=== PATIENT | male | born 1995 | race African-American/Black ===

== ENCOUNTER 2021-02-16 00:39 | Emergency (ER) | payer OTHER ==
[2021-02-16] MEDS ORDERED: ERYTHROMYCIN 0.5% OPHTHALMIC OINTMENT 3.5 GM TUBE OS ONE (01:10)
[2021-02-16] MEDS ORDERED: FLUORESCEIN NA 1 EA STRIP OS ONE (01:11)
[2021-02-16] MEDS ORDERED: TETRACAINE 0.5% HCL 0.6ML DROPPER.BOTTLE OS ONE (01:11)
[2021-02-16 01:22] VITALS: BP 127/78; PULSE 62; TEMP 97.9; BMI 19.3
== END 2021-02-16 02:05 | disposition home or self-care (01) ==
LOC: JER 00:39
DX: S05.02XA Injury of conjunctiva and corneal abrasion without foreign body, left eye, initial encounter (principal); W22.8XXA Striking against or struck by other objects, initial encounter
CPT/HCPCS: 99283-25

== ENCOUNTER 2022-07-12 10:42 | Emergency (ER) | payer OTHER ==
[2022-07-12 10:50] VITALS: BP 120/76; PULSE 52; RESP 18; TEMP 97.9; BMI 21.6
[2022-07-12] MEDS ORDERED: KETOROLAC TROMETHAMINE 30 MG/1 ML VIAL IM ONE (11:20)
[2022-07-12] MEDS ORDERED: KETOROLAC TROMETHAMINE 30 MG/1 ML VIAL ONE (11:25)
== END 2022-07-12 13:24 | disposition home or self-care (01) ==
LOC: JERFT 10:42
PROC: 3E0233Z Introduction of Anti-inflammatory into Muscle, Percutaneous Approach (ICD-10-PCS; principal; 2022-07-12)
DX: S69.92XA Unspecified injury of left wrist, hand and finger(s), initial encounter (principal); W22.8XXA Striking against or struck by other objects, initial encounter
CPT/HCPCS: 73130-TC-LT-FY; 99284-25